=== PATIENT | male | born 1975 | race Caucasian/White ===

== ENCOUNTER 2025-01-31 14:38 | Emergency (ER) | payer MEDICAID, SELFPAY ==
[2025-01-31 14:40] VITALS: PULSE 80; RESP 18; TEMP 36.4; O2SAT 98; BMI 48.9
--- NOTE | 2025-01-31 15:08 | CT_ITS ---
PROCEDURE: ABDOMEN/PELVIS WITHOUT CONT 01/31/2025 REASON FOR EXAM: LEFT FLANK PAIN TECHNIQUE: Procedure Code: CTABDPEL Modality: CT Procedure: ABDOMEN/PELVIS WITHOUT CONT Noncontrast technique limits evaluation of the abdominal and pelvic viscera. Coronal and Sagittal reconstruction series were provided. One or more dose reduction techniques were used (e.g., Automated exposure control, adjustment of the mA and/or kV according to patient size, use of iterative reconstruction technique). RADIATION DOSE SUMMARY: DLP: 1240 mGycm COMPARISON: None FINDINGS: Limited sections of the lung bases demonstrate no focal pulmonary mass or consolidations. Calcified granuloma within the right lower lobe. The liver, spleen, pancreas, and both adrenal glands demonstrate no acute findings. Hepatomegaly to 18.4 cm. The gallbladder contains gallstones. The stomach is unremarkable. The small bowel loops are not dilated. The appendix is normal. No colonic obstruction. Colonic diverticulosis without acute diverticulitis. There is no free air or significant free fluid. 5 mm obstructive stone at the left UVJ with associated mild hydroureteronephrosis. Multiple nonobstructive stones are noted within bilateral kidneys. There is asymmetric enlargement of left kidney compared to right kidney. The urinary bladder is partially distended. The pelvic structures are intact. There is no solid pelvic mass. No significant lymphadenopathy. The aorta and IVC demonstrate no acute findings. Visualized osseous structures demonstrate no acute abnormality. CT/Abdomen/Pelvis without Cont IMPRESSION: 5 mm obstructive stone at the left UVJ with associated mild hydroureteronephros is. Reading Location: [id number]
[2025-01-31] MEDS: Ketorolac 30 MG/ML Syringe IV (15:13)
[2025-01-31] MEDS: 0.9% Normal Saline (1000mL) 1,000 ML 999 ML IV (15:13)
[2025-01-31 15:32] LABS: Hematocrit 48.6 % (40-54); Hemoglobin 16.8 g/dL (13.0-16.5); Immature Granulocytes Count 0.190 X10^3/uL (0.0-0.0); Mean Corp Hgb Conc 34.6 g/dL (32-36); Mean Corpuscular Volume 88.7 fL (80-94); Mean Platelet Vol. 10.3 fl (6.2-12.0); NRBC Flagged by Analyzer 0 % (0-5); Platelet Count 204 K/mm3 (150-450); RBC Distribution Width CV 12.4 % (11.6-14.6); RBC Distribution Width SD 40.4 fl (35.1-43.9); Red Blood Count 5.48 M/mm3 (4.6-6.2); White Blood Count 9.9 K/mm3 (4.4-11.0)
--- NOTE | 2025-01-31 15:50 | EX.ED.DYSGE1 ---
HPI History of Present Illness Chief Complaint: Flank Pain Narrative Narrative: Patient is a 49-year-old male with past medical history anxiety, ADHD, bipolar disorder who presented to the emergency department with concern for a kidney stone. He states that this feels like kidney stone as he has had multiple in the past. He states that he has passed these on his own in the past and has not had to have these removed. He states that this pain started about 2 hours prior to arrival. He states that is in the left side and is making him nauseous. He states he did not take anything for pain. [facility] Medical History ADHD Anxiety Bipolar disorder Kidney stones Home Medications ?Medication ?Instructions ?Recorded ?Last Taken ?Type amoxicillin 875 mg-potassium 1 tab PO Q12H #14 tabs 11/19/21 Unknown Rx clavulanate 125 mg tablet divalproex 500 mg tablet,delayed 500 mg PO BID 11/19/21 Unknown History release (Depakote) flaxseed oil 1,000 mg capsule 1,000 mg PO DAILY 11/19/21 Unknown History lorazepam 1 mg tablet (Ativan) 1 mg PO DAILY PRN 11/19/21 Unknown History paroxetine HCl 30 mg tablet (Paxil) 30 mg PO DAILY 11/19/21 Unknown History topiramate 200 mg tablet (Topamax) 200 mg PO DAILY 11/19/21 Unknown History ketorolac 10 mg tablet 10 mg PO Q6H PRN pain 5 days #20 01/31/25 Unknown Rx tabs ondansetron 4 mg disintegrating 4 mg PO Q6H PRN nausea and 01/31/25 Unknown Rx tablet vomiting #20 tabs oxycodone-acetaminophen 5 mg-325 1 tab PO Q6H PRN pain 3 days #12 01/31/25 Unknown Rx mg tablet (Endocet) tabs tamsulosin 0.4 mg capsule (Flomax) 0.4 mg PO DAILY #14 caps 01/31/25 Unknown Rx Allergy/AdvReac Type Severity Reaction Status Date / Time No Known Allergies Allergy Verified 01/31/25 14:39 Social History Smoking Status: Former smoker alcohol intake: never ROS ROS ED ROS Narrative Constitutional: Denies any fevers, chills, headaches Eyes: Denies double vision Cardiovascular: Denies chest pain Respiratory: No shortness of breath Abdomen: Denies abdominal pain vomiting diarrhea : Denies any painful urination, hematuria, polyuria Neurological: Denies any numbness, weakness, tingling Musculoskeletal: Complains of left flank pain as noted above Skin: Denies any rashes or lesions EXAM Physical Exam Narrative Exam Narrative: General: Patient lying in bed rest comfortably did appear to be uncomfortable secondary to his flank pain Head: Atraumatic, normocephalic Eyes: PERRL bilaterally, EOMI bilaterally, no conjunctival injection noted Neck: Soft, supple, trachea midline Cardiovascular: Regular rate and rhythm Respiratory: Clear to auscultation bilaterally Abdomen: Soft, nondistended, no tenderness to palpation Musculoskeletal: Patient has no tenderness to palpation of midline of the thoracolumbar spine, CVA tenderness noted on the left Extremities: +5/5 strength noted in the bilateral upper and lower extremities, radial pulses +2/4 in the bilateral extremities, no pedal edema exam Neurological: Patient following commands and that he was at [facility] the year is 2024 Skin: Warm, dry, intact no rashes or lesions noted Const Vital Signs: 01/31/25 14:40 Temperature 97.6 F L Temperature Source Temporal Pulse Rate 80 Respiratory Rate 18 Pulse Ox 98 Oxygen Delivery Method Room Air MDM MDM MDM Narrative Medical decision making narrative: Patient is a 49-year-old male who presented to the emergency department the chief complaint of left flank pain. On the differential diagnose includes but not limited to UTI, pyelonephritis, urolithiasis. Once workup is obtained reviewed he will be reevaluated. Patient given IV fluids Zofran and Toradol. Patient says CBC reviewed and showed no evidence of leukocytosis white blood count normal at 9.9, he was 16.8, platelet count of 204. Patient sodium normal 130, potassium normal at 4.4, creatinine was 1.50 this does appear to be around his baseline as back in November 2016 his creatinine was elevated to 1.74. Patient CT abdomen pelvis from 12/04/2016 was reviewed as well which showed at that point time right hydronephrosis and hydroureter most likely secondary to a recently passed 3 mm right ureteral calculus. The calculus is at the base of the bladder more towards the right side. Fatty infiltration of the liver. Patient's AST and ALT were 29 and 32 respectively. Patient urinalysis reviewed and showed 150 occult blood negative nitrites negative leukocyte esterase microscopic exam pending however have low suspicion for infection at this point in time. Patient CT ab pelvis without IV contrast is pending at this point in time. Patient CT abdomen pelvis without IV contrast showed a 5 mm obstructive stone at the left UVJ with associated mild hydroureteronephrosis. Patient's microscopic exam was reviewed which showed 25-50 red blood cells, 0-5 white blood cells and no bacteria noted. On reevaluation the patient at 4:20 PM he is resting comfortably in bed and does not appear to be in pain. Did discuss results with the patient he would like to go home at this point time. Patient was advised to use the Toradol as prescribed as well as the Endocet and Zofran as prescribed. He will be also prescribed Flomax. He is given urology referral as well. He is encouraged return with worsening symptoms or concerns. He is requesting pain medication before discharge. He is encouraged to return with worsening symptoms or other concerns all question concerns answered he is discharged home in stable condition. Lab Data Labs: Laboratory Results - last 24 hr 01/31/25 01/31/25 15:00 16:00 WBC 9.9 RBC 5.48 Hgb 16.8 H Hct 48.6 MCV 88.7 MCH 30.7 MCHC 34.6 RDW Std Deviation 40.4 RDW Coeff of Sunil 12.4 Plt Count 204 MPV 10.3 Immature Gran % (Auto) 1.900 H Neut % (Auto) 55.0 Lymph % (Auto) 26.0 [place] % (Auto) 13.3 H Eos % (Auto) 2.4 Baso % (Auto) 1.4 H Absolute Neuts (auto) 5.4 Absolute Lymphs (auto) 2.57 Nucleated RBC % 0 Sodium 138 Potassium 4.4 Chloride 107 Carbon Dioxide 18.2 L Anion Gap 13 BUN 24 H Creatinine 1.50 H Estim Creat Clear Calc 85.62 Est GFR (MDRD) Non-Af 57 L BUN/Creatinine Ratio 15.8 Glucose 183 H Calcium 9.3 Total Bilirubin 0.26 AST 29 ALT 32 Alkaline Phosphatase 60 Total Protein 7.4 Albumin 4.0 Globulin 3.4 Albumin/Globulin Ratio 1.2 Urine Color Yellow Urine Clarity Sl. Cloudy Urine pH 6.0 Ur Specific [place] 1.020 Urine Protein 30 H Urine Glucose (UA) Normal Urine Ketones Negative Urine Occult Blood 150 H Urine Nitrite Negative Urine Bilirubin Negative Urine Urobilinogen Normal Ur Leukocyte Esterase Negative Urine RBC 25-50 SEEN Urine WBC 0-5 SEEN Ur Squamous Epith Cells 0-5 SEEN Urine Bacteria 0 SEEN Urine Mucus 0 SEEN Radiography Diagnostic Testing: Clinical Impression(s) from Imaging Studies Abdomen/Pelvis CT 01/31/25 15:08 IMPRESSION: 5 mm obstructive stone at the left UVJ with associated mild hydroureteronephrosis. Reading Location: [facility] Discharge Plan Triage Chief Complaint: Flank Pain ED Provider: Joshua Greenfield Dx/Rx/DC Orders Clinical Impression: Urolithiasis, Left flank pain, History of bipolar disorder Prescriptions: New ketorolac 10 mg tablet 10 mg PO Q6H PRN (Reason: pain) 5 Days Qty: 20 0RF Rx Instructions: maximum total duration of 5 days from all oral, intranasal, or parenteral formulations ondansetron 4 mg tablet,disintegrating 4 mg PO Q6H PRN (Reason: nausea and vomiting) Qty: 20 0RF tamsulosin [Flomax] 0.4 mg capsule 0.4 mg PO DAILY Qty: 14 0RF oxycodone-acetaminophen [Endocet] 5-325 mg tablet 1 tab PO Q6H PRN (Reason: pain) 3 Days Qty: 12 0RF No Action paroxetine HCl [Paxil] 30 mg tablet 30 mg PO DAILY topiramate [Topamax] 200 mg tablet 200 mg PO DAILY divalproex [Depakote] 500 mg tablet,delayed release (DR/EC) 500 mg PO BID flaxseed oil 1,000 mg capsule 1,000 mg PO DAILY Rx Instructions: administer with a meal lorazepam [Ativan] 1 mg tablet 1 mg PO DAILY PRN amoxicillin-pot clavulanate 875-125 mg tablet 1 tab PO Q12H Qty: 14 0RF Primary Care Provider: Care Physician,No Primary Referrals: Calderon Farfan MD [Med Staff - Active Staff] - Care Physician,No Primary [Primary Care Provider] - Activity Restrictions/Additional Instructions: Use prescriptions as prescribed do not use any other type of NSAID with the Toradol as this is the same drug. Do not operate anything under the influence of the narcotic and ensure that you use the Zofran with this as this will upset your stomach. Return if worsening symptoms or other concerns. Follow-up with your urologist Dr. Farfan in the outpatient setting as well. Your CT scan did show that you have a kidney stone near your bladder measuring approximately 5 mm. Print Language: Setswana Disposition Disposition: Home, Self Care
[2025-01-31 16:06] LABS: AST(SGOT) 29 U/L (<=37); Alanine Aminotransfer ALT/SGPT 32 U/L (<=46); Albumin, Serum 4.0 g/dL (3.5-5.0); Alkaline Phosphatase 60 U/L (40-129); Anion Gap 13 (5-15); BUN 24 mg/dL (4-19); BUN/Creat Ratio 15.8 RATIO (10-20); Calcium,Total 9.3 mg/dL (7.6-11.0); Carbon Dioxide 18.2 mmol/L (21.0-32.0); Chloride 107 mmol/L (98-108); Estimated Creatinine Clearance 85.62 ml/min (50-250); Globulin 3.4 g/dL (2.2-4.2); Glucose 183 mg/dL (70-99); Potassium 4.4 mmol/L (3.3-5.1)
[2025-01-31 16:07] LABS: Mucous, Urine 0 SEEN /hpf (<or=2+)
[2025-01-31 16:13] LABS: Color, Urine Yellow (Yellow); Glucose, Dipstick Normal (Normal); Ketone-Dipstick Negative (Negative); Leukocyte Esterase-Dipstick Negative /ul (Negative); Nitrite-Dipstick Negative (Negative); Occult Blood-Urine 150 /ul (Negative); Protein-Dipstick 30 mg/dl (Negative); Specific Gravity, Urine 1.020 (1.002-1.030); Urine Bilirubin Dipstick Negative (Negative)
[2025-01-31 16:23] LABS: Red Blood Cells-Urine 25-50 SEEN /hpf (0-5)
[2025-01-31 16:24] LABS: Squamous Epithelial Cells - UA 0-5 SEEN /hpf (0-5)
[2025-01-31 16:51] VITALS: BP 132/80; PULSE 100; RESP 16; TEMP 36.4; O2SAT 98
--- OUTSIDE RECORDS SUMMARY | 2025-01-31 22:58 | XMS RPT_ITS | CCD ---
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 06:37 04/25/24. BP: 143/87 MAP: 103 mmHg. HR: 66 bpm. -- 07:29 04/25/24 SEBASTIÁN Kumar R.N. 06:40 04/25/24. Ambulatory to room. GENERAL / NEURO / PSYCH: Alert. Oriented X 4. Appears in pain. HEENT: Mucous membranes are pink. RESPIRATORY: Respirations not labored. Breath sounds within normal limits. ( Pt has rapid breathing with c/o extreme pain.). GI / : Abdomen soft. Bowel sounds within normal limits. ( Pt reports he has not voided since he woke up with 3 of 5 Nurse Narrative the pain.). SKIN: Skin is warm and dry. -- 07:30 04/25/24 SEBASTIÁN Kumar R.N. 06:40 04/25/24. Pain level now 12/25. -- 07:29 04/25/24 EST Evette (more content not included)... Normal [facility] ED ORDER SHEET (CPOE ONLY)on 04-25-2024 ED ORDER SHEET (CPOE ONLY) Order Sheet Order Sheet [address] [place] [address] [id number] 04/25/2024 Patient: TEJAS GARCIA Sex: Male : 1975 Age: 49y MEASUREMENTS: Wt: 145.1 kg, Ht/Luther: 68.0 in, BMI: 48.66 ALLERGIES: No known drug allergies MEDICATION/IV/DRIP/ FLUID ORDERS Order Description Priority Entered Acknowledged Completed IV NS 0.9 %1000 mL at 500 06:42 04/25/2024 06:46 06:58 mL/hr (NOW x1) Sarah Givens, 04/25/2024 04/25/2024 Evette Castano R.N. R.N. KetorOLAC (Toradol) IVP30 mg 06:42 04/25/2024 06:46 06:59 (NOW x1) Sarah Givens, 04/25/2024 04/25/2024 Evette Castano R.N. R.N. Reason for ordering with alerts: Benefits outweigh risks --06:42 04/25/2024 Sarah Givens D.O. HYDROmorphone (Dilaudid) 06:42 04/25/2024 06:46 07:03 IVP0.5 mg (NOW x1, HIGH Sarah Givens, 04/25/2024 04/25/2024 ALERT MEDICATION) Evette Castano R.N. RAriane Reason for ordering with alerts: Benefits outweigh risks --06:42 04/25/2024 Sarah Givens D.O. Flomax PO0.8 mg (NOW x1) 07:30 04/25/2024 07:31 07:38 1 of 3 Order Sheet Juan Heck M.D. 04/25/2024 04/25/2024 Ok Barkley R.N. RAriane Bentyl PO20 mg (NOW x1) 07:30 04/25/2024 07:31 07:37 Juan Heck M.D. 04/25/2024 04/25/2024 Ok Barkley R.N. R.NMelanie Reason for ordering with alerts: Clinical consideration given --07:30 04/25/2024 Juan Heck M.D. HYDROmorphone (Dilaudid) 08:10 04/25/2024 08:11 08:14 IVP0.5 mg (NOW x1, HIGH Juan Heck M.D. 04/25/2024 04/25/2024 ALERT MEDICATION) Ok Black R.N. RMelanieNMelanie Reason for ordering with alerts: Clinical consideration given --08:10 04/25/2024 Juan Heck M.D. LAB ORDERS Order Description Priority Entered Acknowledged Collected Completed Urinalysis Stat Stat 06:42 04/25/2024 06:46 04/25/2024 07:31 04/25/2024 Evette Adams Debra Schrock, D.O. R.N. R.NMelanie DIAGNOSTIC STUDY ORDERS Order Description Priority Entered Acknowledged Completed CT KUB (Kidney stone) Stat Stat 06:42 04/25/2024 06:46 07:31 Sarah Givens, 04/25/2024 04/25/2024 Evette Castano R.N. R.NMelanie Reason for Study: Flank Pain STAFF ORDERS Order Description Priority Entered Acknowledged Collected Completed IV Saline Lock 06:42 04/25/2024 06:46 04/25/2024 07:31 04/25/2024 Evette Adams, Evette Kumar, 2 of 3 Order Sheet D.OMelanie R.N. RMelanieN. [Electronically signed by Sarah Givens D.O. (04/25/2024 07:17 EST)] [Electronically signed by Juan Heck M.D. (04/25/2024 11:22 EST)] [Electronically signed by Juan Heck M.D. (04/25/2024 18:10 EST)] 3 of 3 Normal [facility] ED PHYSICIAN CLINICAL REPORT on 04-25-2024 ED PHYSICIAN CLINICAL REPORT Narrative Physician Clinical Narrative [address] [address] [id number] 04/25/2024 Patient: TEJAS GARCIA Sex: Male : 1975 Age: 49y Disposition: Discharge to Home Disposition Decision Time: 08:20 04/25/2024 Departure Time: 08:25 04/25/2024 Measurements Wt: 145.1 kg, Ht/Luther: 68.0 in, BMI: 48.66 Initial Vital Sign Measured Time BP MAP HR RR O2Sat ETCO2 Temp Pain GCS RTS 06:37 04/25/2024 143/87 103 66 Time Seen: 07:23 04/25/2024. PAST HISTORY Renal Colic Surgeries: no known surgical history Medications: Ativan 1 mg tablet: 1 mg as needed. Depakote 500 mg tablet,delayed release: 500 mg once a day . PaxiL 30 mg tablet: 30 mg once a day . Topamax 200 mg tablet: 200 mg once a day . 1 of 8 Narrative Allergies: no known drug allergies LABS, X-RAYS, AND EKG Diagnostic Study Tests: CT KUB (KIDNEY STONE PROTOCOL) Final EXAM Date: 04/25/2024 07:18:00 EST MsgRcvd: 04/25/2024 07:[address] [address] Patient: TEJAS GARCIA Phone#: : [phone] Age: 49 Gender: M Pt. Type: ER Account: [id number] Location: 052 Ordering: SARAH CHON Exam Date: 04/25/2024/7:10 Family Phys: RERE ADRIAN Charge Code: 925148 Physician: Oscoda Order #: [id number] Dose#: 26.7 mGy PROCEDURE: CT ABDOMEN AND PELVIS WITHOUT CONTRAST COMPARISON: [facility], CT, KUB W/O CON, 03/24/2023, 6:29. INDICATIONS: Flank pain. TECHNIQUE: After obtaining the patient's consent, CT images of the abdomen and pelvis were created without non-ionic intravenous contrast material. All CT scans at this facility use dose modulation, iterative reconstruction, and/or weight based dosing when appropriate to reduce radiation dose to as low as reasonably achievable. IV CONTRAST: No IV contrast used,ml TOTAL DOSE: 26.7 CTDIvol(mGy) FINDINGS: KIDNEYS: 8 millimeter calculus is present at the right ureteral pelvic junction. There are nonobstructing right renal calculi measuring 6 millimeters in 2 millimeters. Nonobstructing left renal calculus is present and measures 8 millimeters. There is mild fullness of the right pelvocaliceal structures. The ureter is normal in caliber. There is a calculus at the right ureteral vesicle junction measuring 5 2 of 8 Narrative millimeters. ADRENALS: Normal. No mass or enlargement. URINARY BLADDER: Normal. No visible focal wall thickening, lesion, or calculus. LIVER: Fatty changes of the liver are present. There is no evidence of focal abnormality. BILIARY: There is a 2.3 centimeter gallbladder calculus. There is no evidence of biliary dilatation or inflammatory change. PANCREAS: Normal. No lesion, fluid collection, ductal dilatation, or atrophy. SPLEEN: Normal. No enlargement or focal lesion. AORTA/VASCULAR: Normal. No aneurysm. RETROPERITONEUM: Normal. No mass or adenopathy. BOWEL/MESENTERY: Normal. No visible mass, obstruction, or bowel wall thickening. ABDOMINAL WALL: Normal. No mass or hernia. PELVIC NODES: Normal. No adenopathy. Continued Report - Page 2 of 2 Patient: TEJAS GARCIA Phone#: : [phone] Age: 49 Gender: M Pt. Type: ER Account: [id number] Location: 052 Ordering: SARAH GIVENS Exam Date: 04/25/2024/7:10 Family Phys: RERE ADRIAN Charge Code: [id number] Physician: Oscoda Order #: [id number] Dose#: 26.7 mGy PELVIC ORGANS: Normal. No visible mass. Pelvic organs appropriate for patient age. BONES: Normal. No bony lesion or fracture. LUNG BASES: Normal. No visible pulmonary or pleural disease. OTHER: Negative. CONCLUSION: 1. Nonobstructing bilateral renal calculi. 2. There is a calculus at the right ureteral pelvic junction and ureterovesical junction. There is fullness of the right pelvocaliceal structures. The ureter is normal in caliber. 3. Cholelithiasis. Dictated by: Irina Trivedi MD on 04/25/2024 at 7:25 Approved by: Irina Trivedi MD on 04/25/2024 at 7:29 PROGRESS AND PROCEDURES Course of Care: 08:19. Pain better. Breathing normal. No vomiting and anxiety. Appearance good. Heart rate: normal. Blood pressure: normal. (I went into evaluate the patient after he returned from CT. His pain at that point 3 of 8 Narrative was very much improved he had no nausea vomiting or other complaints. Abdomen was soft and nontender. Ordered some oral tamsulosin at that point. Awaiting CT report.). Disposition: Condition: good. Discharged in good condition. Discharge decision based on the following: patient's condition is improved; patient's exam is stable; no seriously abnormal test results; multiple repeat evaluations. CLINICAL IMPRESSION Acute generalized abdominal pain. Right renal colic with calculus. No hydronep (more content not included)... Normal [facility] ED [facility] BILLon 04-25-2024 ED [facility] [address] [place] [address] [phone] 04/25/2024 Patient: TEJAS GARCIA Sex: Male : 1975 Age: 49y Facility Professional Category Item Description Code Code Quantity Fee Total Drugs Normal Saline 136145 1 $0.00 $0.00 1000cc (259924) Nurse/E/M EMERGENCY 895119 1 $0.00 $0.00 DEPT VISIT HIGH SEVERITYFUNCJ (39346-55) Nurse/IV/IM/Infusio ns Hydration 866777 1 $0.00 $0.00 additional hour (28124) Nurse/IV/IM/Infusio ns IVP additional 061049 1 $0.00 $0.00 push (32539) Nurse/IV/IM/Infusio ns IVP initial (97584) 373616 1 $0.00 $0.00 Nurse/IV/IM/Infusio ns IVP same med 053301 1 $0.00 $0.00 (31 min apart) (81339) Grand $0.00 Total Providers 1 of 2 [facility] Lanre Adams M.D. Stan Boyd, M.D. Chief Complaint FLANK PAIN. Principal Diagnosis Acute generalized abdominal pain. Right renal colic with calculus. No hydronephrosis. ICD-10 Codes R10.84: Generalized abdominal pain N23: Unspecified renal colic N20.0: Calculus of kidney 2 of 2 Normal [facility] ED VISIT SUMMARYon ED VISIT SUMMARY Visit Overview Visit Overview [address] [address] [phone] 04/25/2024 Patient: TEJAS GARCIA Sex: Male : 1975 Age: 49y 04/25/2024 06:10 PM EST ED Arrival:06:33 04/25/2024 EST Status: Recent Travel:no Language:eng Adv Directive:No Isolation Status: Ethnicity:N Fall Risk:no risk Infectious Disease Exposure:no Measurements:5'8 / 172.7 Self-Harm Status:risk Sepsis Screen:negative cm 320.0 lb / 145.1 kg Chief Complaint:URINARY RETENTION, (c/o pain to right lower quadrant of abd radiating to right flank area. 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 Depakote 500 mg tablet,delayed release: 500 mg once a day . PaxiL 30 mg tablet: 30 mg once a day . Topamax 200 mg tablet: 200 mg once a day . 1 3 Visit Overview PAST MEDICAL HISTORY / PROBLEMS Immunizations: up-to-date Renal Colic PAST SURGICAL HISTORY No history of previous surgery No Surgeries SOCIAL HISTORY Nutritional assessment: No deficits Functional assessment: No impairments Learning needs: No barriers Smoking status: No Alcohol use: Yes Drug use: Yes ED COURSE MEDICATIONS GIVEN IN EMERGENCY DEPARTMENT 06:57 04/25/24 IV NS 0.9 % 1000 mL 500 mL/hr 06:59 04/25/24 KetorOLAC (Toradol) IVP 30 mg 07:01 04/25/24 HYDROmorphone (Dilaudid) IVP 0.5 mg 07:36 04/25/24 Bentyl PO 20 mg 07:37 04/25/24 Flomax PO 0.8 mg 08:14 04/25/24 HYDROmorphone (Dilaudid) IVP 0.5 mg IV SITE INFORMATION INTAKE OUTPUT REASSESMENT (most recent) 2 of 3 Visit Overview 06:40 04/25/24. Ambulatory to room. GENERAL / NEURO / PSYCH: Alert. Oriented X 4. Appears in pain. HEENT: Mucous membranes are pink. RESPIRATORY: Respirations not labored. Breath sounds within normal limits. ( Pt has rapid breathing with c/o extreme pain.). GI / : Abdomen soft. Bowel sounds within normal limits. ( Pt reports he has not voided since he woke up with the pain.). SKIN: Skin is warm and dry. VITAL SIGNS First Vitals Last Vitals Temp 06:37 04/25/24 Temp 08:29 04/25/24 BP 06:37 04/25/24 143/87 BP 08:29 04/25/24 122/76 HR 06:37 04/25/24 66 HR 08:29 04/25/24 74 RR 06:37 04/25/24 RR 08:29 04/25/24 O2 Sat 06:37 04/25/24 O2 Sat 08:29 04/25/24 Pain 06:37 04/25/24 Pain 08:29 04/25/24 ETCO2 06:37 04/25/24 ETCO2 08:29 04/25/24 GCS 06:37 04/25/24 GCS 08:29 04/25/24 RTS 06:37 04/25/24 RTS 08:29 04/25/24 PROCEDURES NURSING INTERVENTIONS LABS / STUDIES LABS / STUDIES ORDERED CT KUB (Kidney stone) Urinalysis CLINICAL IMPRESSION ACUTE GENERALIZED ABDOMINAL PAIN RIGHT RENAL COLIC WITH CALCULUS. NO HYDRONEPHROSIS 3 of 3 Normal [facility] ED VITALS FLOW SHEETon 04-25 ED VITALS FLOW SHEET Vitals Vital Sign Flow Sheet [place] [address] [place] [address] [phone] 04/25/2024 Patient: TEJAS GARCIA Sex: Male : 1975 Age: 49y Measurements Wt: 145.1 kg, Ht/Luther: 68.0 in, BMI: 48.66 Measured Time BP MAP HR RR O2Sat ETCO2 Temp Pain GCS RTS 08:29 04/25/2024 122/76 91 74 08:25 04/25/2024 122/76 91 70 16 96% 98.0 F 1 06:46 04/25/2024 24 06:44 04/25/2024 97.4 F 06:40 04/25/2024 97% RA 06:40 04/25/2024 8 06:37 04/25/2024 143/87 103 66 1 of 1 Normal [facility] T3Free SerPl-mCncon 06-17-19 24 Free T3 [Mass/Vol] 3.3 pg/mL Normal 2.3-4.1 [facility] Comment on above: Order Comment: Speci men Type: BLOOD SPECIMEN Ordering Facility: [facility] Address: [place] [address] Performed By: #### 3 051-0 #### [facility] CLIA [id number] [address] [place] [address] [place] Bacteria Ur Culton 3 Bacteria identified Cx Nom (U) ORGANISM ID: 1 10,000 -<50,000 CFU/ml Normal urogenital christina Normal [facility] Comment on above: Performed By: #### 6 30-4 #### [facility] CLIA [id number] [facility] [place] [id number] [place] Valproate SerPl-mCncon 10-01 Valproate [Mass/Vol] 51.2 ug/mL Normal 50.0-100.0 [facility] Comment on above: Order Comment: Speci men Type: BLOOD SPECIMEN Ordering Facility: [facility] Address: [address] [place] [address] Result Comment: Refe rence ranges and high/low indicator flags are provided as general guidelines only. The treating physician must determine appropriate target levels/dosing based on the specific clinical situation. Performed By: #### 4 086-5 #### [facility] CLIA [id number] [address] [place], [place] [id number] [place] Urgent Care Visit Reporton 0 11-19-2021 Urgent Care Visit Report [address] [place] [id number] OFFICE VISIT Date of Service: 11/19/21 MR#: [id number] Acct: [id number] Name: TEJAS GARCIA Kanchan Rep #: [id number] : 1975 Provider: ROSA Jimenez Age/Sex: 46/M Location: [facility] Status: Signed Intake Vital Signs 11/19/21 14:41 Height 1.75 m Weight: 139.706 kg BMI 45.4 BP 160/100 H Blood Pressure Location Lt brachial Position Sitting Respiration 16 Pulse 78 Pulse Source Monitor Temp 98.0 F Temp Source Temporal Pulse Oximetry (%) 98 Oxygen Delivery Method room air Intake Visit Reasons: TOOTHACHE Chief Complaint: left upper tooth ache Allergies No Known Allergies Allergy (Verified 11/19/21 14:42) Medications amoxicillin 875 mg-potassium clavulanate 125 mg tablet 1 tab PO Q12H #14 tabs 11/19/21 [Rx Confirmed 11/19/21] divalproex 500 mg tablet,delayed release (Depakote) 500 mg PO BID 11/19/21 [History Confirmed 11/19/21] flaxseed oil 1,000 mg capsule 1,000 mg PO DAILY 11/19/21 [History Confirmed 11/19/21] lorazepam 1 mg tablet (Ativan) 1 mg PO DAILY PRN 11/19/21 [History Confirmed 11/19/21] paroxetine HCl 30 mg tablet (Paxil) 30 mg PO DAILY 11/19/21 [History Confirmed 11/19/21] topiramate 200 mg tablet (Topamax) 200 mg PO DAILY 11/19/21 [History Confirmed 11/19/21] PFSH Social History (Updated 11/19/21 @ 14:44 by Ekta Franco) Smoking Status: Smoker, status unknown alcohol intake: never HPI HPI Chief Complaint: left upper tooth ache Details: TEJAS GARCIA, is a 46 M who presents to the office today for tooth ache. The patient has had multiple extractions and root canals, and has dental needs approx every 6 months. He knows that he needs extraction or root canal but cannot get in to see his dentist for at least a month. He has had progressively worsening pain especially the left upper molar.. He has no swelling. He cannot put more than light pressure on the teeth. No discharge. No gum swelling. No fever or chills. He can still eat, just not chew with that affected area. ROS Const Constitutional: No chills, fatigue or fever(s) ENT ENT: Positive for dental pain and mouth pain Endo Endocrine: No fatigue Exam Const General: cooperative, healthy appearing, comfortable and no acute distress Nutritional Appearance: overweight Orientation: alert, awake and oriented x3 HENMT Head: normocephalic and atraumatic Mouth: oral mucosae normal, lip normal, tongue normal and moist mucous membranes Teeth and gingiva: caries, poor dentition (severe erosion and caries especially last three teeth left upper side) and other (no pus or collection. no TMJ tenderness or crepitus.) Coding Level of Care Code Off vis,new,level 3 Diagnoses Infected dental caries K02.9; K04.7 Assessment and Plan Assessment and Plan (1) Infected dental caries: Status: Acute Plan: Start augmentin 875 BID x 7 days. continue nsaids and tylenol for pain. emphasized the need to get into the dentist as soon as possible for definitive care. He has multiple other areas that need addressed as well. pmhx - anxiety/depression. hes on topamax and depakote but wrote that he has no hx of seizure disorder. Medications: New amoxicillin-pot clavulanate 875-125 mg 1 TAB PO Q12H 14 tabs 0RF 11/19/21 1513 Date Cheikh Kapadia Signature: Date (if applicable) CC: Normal [facility] Valproic Acidon 05-16-2021 Valproic Acid 50.9 ug/mL Normal 50-100 [facility] Comment on above: Performed By: #### Libertad LEE #### [facility] Routine Lab [address] [place] [address] Vital Signs Date Time Vital Sign Value Performing Clinician Faci lity 01-31-2025 16:51-0400 Body temperature 97.6 [degF] Dr. Joshua Greenfield DO Work Phone: [facility] 01-31-2025 16:51-0400 Diastolic blood pressure 80 mm[Hg] Dr. Joshua Greenfield DO Work Phone: [facility] 01-31-2025 16:51-0400 Heart rate 100 /min Dr. Joshua Greenfield DO Work Phone: [facility] 01-31-2025 16:51-0400 Respiratory rate 16 /min Dr. Joshua Greenfield DO Work Phone: [facility] 01-31-2025 16:51-0400 SaO2% (BldA) [Mass fraction] 98 % Dr. Joshua Greenfield DO Work Phone: [facility] 01-31-2025 16:51-0400 Systolic blood pressure 132 mm[Hg] Dr. Joshua Greenfield DO Work Phone: [facility] 01-31-2025 14:40-0400 Body height 172.[address] Joshua Greenfield DO Work Phone: [facility] 01-31-2025 14:40-0400 Body mass index (BMI) [Ratio] 48.9 kg/m2 Dr. Joshua Greenfield DO Work Phone: [facility] 01-31-2025 14:40-0400 Body weight 145.[address] Joshua Greenfield DO Work Phone: [facility] Encounters Encounter Date Encounter Type Care Provider Facility Start: 01-31-2025 End: 01-31-2025 Emergency department patient visit Dr. Joshua Greenfield DO Work Phone: -Emergency Department Work Phone: Start: 10-16-2024 End: 10-16-2024 Emergency department patient visit JACIEL OLIVER [facility] Start: 04-25-2024 End: 04-25-2024 Emergency department patient visit SARAH GIVENS [facility] Start: 01-19-2024 ambulatory MICHELLE ARANDA [facility] Start: 01-04-2024 End: 01-04-2024 ambulatory RERE FITZPATRICK [facility] Procedures Date Procedure Procedure Detail Performing Clinician Start: 01-31-2025 Urnls dip stick/tabl et reagent auto microscopy Dr. Joshua Greenfield DO Work Phone: Start: 01-31-2025 CT of abdomen and pe lvis without contrast Dr. Joshua Greenfield DO Work Phone: Start: 01-31-[address] Joshua Greenfield DO Work Phone: Plan of Treatment Date Care Activity Detail Author Start: 01-31-2025 [facility] Payers Date Payer Category Payer Unknown [id number] [id number] 1975 Unknown [id number] 2.16.8 [id number] 1975 Unknown [id number] 2.16.8 [id number] 1975 Unknown [id number] 2.16.8 [id number] Unknown [id number] Unknown [id number] Social History Date Type Detail Facility Start: 01-31-2025 [facility] Start: 1975 Sex Assigned At Male [facility] Discharge summary 01-31-2025 Note Date & Type Note Facility 01-31-2025 Discharge summary [facility] Radiology Diagnostic study note 01-31-2025 Note Date & Type Note Facility 01-31-2025 Radiology Diagnostic study note [facility] Imaging Services [address] [place] [address] Abdomen/Pelvis without Cont MR#: [id number] Acct: [id number] Name: TEJAS GARCIA Rep #: [id number] : 1975 M 49 From: Nina Ambrosio MD PCP: Care Physician,No Primary Status: REG ER Study:Abdomen/Pelvis without Cont Date of Exa m: 01/31/25 Exam# [id number] Ordering Dr: Araceli Greenfield DO PROCEDURE: ABDOMEN/PELVIS WITHOUT CONT 01/31/2025 REASON FOR EXAM: LEFT FLANK PAIN TECHNIQUE: Procedure Code: CTABDPEL Modality: CT Procedure: ABDOMEN/PELVIS WITHOUT CONT Noncontrast technique limits evaluation of the abdominal and pelvic viscera. Coronal and Sagittal reconstruction series were provided. One or more dose reduction techniques were used (e.g., Automated exposure control, adjustment of the mA and/or kV according to patient size, use of iterative reconstruction technique). RADIATION DOSE SUMMARY: DLP: 1240 mGycm COMPARISON: None FINDINGS: Limited sections of the lung bases demonstrate no focal pulmonary mass or consolidations. Calcified granuloma within the right lower lobe. The liver, spleen, pancreas, and both adrenal glands demonstrate no acute findings. Hepatomegaly to 18.4 cm. The gallbladder contains gallstones. The stomach is unremarkable. The small bowel loops are not dilated. The appendix is normal. No colonic obstruction. Colonic diverticulosis without acute diverticulitis. There is no free air or significant free fluid. 5 mm obstructive stone at the left UVJ with associated mild hydroureteronephrosis. Multiple nonobstructive stones are noted within bilateral kidneys. There is asymmetric enlargement of left kidney compared to right kidney. The urinary bladder is partially distended. The pelvic structures are intact. There is no solid pelvic mass. No significant lymphadenopathy. The aorta and IVC demonstrate no acute findings. Visualized osseous structures demonstrate no acute abnormality. CT/Abdomen/Pelvis without Cont IMPRESSION: 5 mm obstructive stone at the left UVJ with associated mild hydroureteronephrosis. Reading Location: [id number] CC: Dr. 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 [facility] Discharge summary 01-31-2025 Note Date & Type Note Facility 01-31-2025 Discharge summary Note Date/Time January 31, 2025 4:29pm [facility] Medical Records Department [address] [place] [address] Emergency Department Summary 01/31/25 MR#: [id number] Acct: [id number] Name: TEJAS GARCIA Rep #:[id number] : 1975 49 From: Joshua Greenfield DO PCP: Care Physician,No Primary Status :REG ER Location: ED HPI History of Present Illness Chief Complaint: Flank Pain Narrative Narrative: Patient is a 49-year-old male with past medical history anxiety, ADHD, bipolar disorder who presented to the emergency department with concern for a kidney stone. He states that this feels like kidney stone as he has had multiple in the past. He states that he has passed these on his own in the past and has nothad to have these removed. He states that this pain started about 2 hours priorto arrival. He states that is in the left side and is making him nauseous. He states he did not take anything for pain. [facility] Medical History ADHD Anxiety Bipolar disorder Kidney stones Home Medications ?Medication ?Instructions ?Recorded ?Last Taken ?Type amoxicillin 875 mg-potassium 1 tab PO Q12H #14 tabs Unknown Rx clavulanate 125 mg tablet divalproex 500 mg tablet,delayed 500 mg PO BID 2 Unknown History release (Depakote) flaxseed oil 1,000 mg capsule 1,000 mg PO DAILY Unknown History lorazepam 1 mg tablet (Ativan) 1 mg PO DAILY PRN 11/19 Unknown History paroxetine HCl 30 mg tablet (Paxil) 30 mg PO DAILY 10/06 Unknown History topiramate 200 mg tablet (Topamax) 200 mg PO DAILY 10/06 Unknown History ketorolac 10 mg tablet 10 mg PO Q6H PRN pain 5 days #20 01/31/25 Unknown Rx tabs ondansetron 4 mg disintegrating 4 mg PO Q6H PRN nausea and 01/31/25 Unknown Rx tablet vomiting #20 tabs oxycodone-acetaminophen 5 mg-325 1 tab PO Q6H PRN pain 3 days #12 01/31/25 Unknown Rx mg tablet (Endocet) tabs tamsulosin 0.4 mg capsule (Flomax) 0.4 mg PO DAILY #14 caps 01/31/25 Unknown Rx Allergy/AdvReac Type Severity Reaction Status Date / Time No Known Allergies Allergy Verified 01/31/25 14:39 Social History Smoking Status: Former smoker alcohol intake: never ROS ROS ED ROS Narrative Constitutional: Denies any fevers, chills, headaches Eyes: Denies double vision Cardiovascular: Denies chest pain Respiratory: No shortness of breath Abdomen: Denies abdominal pain vomiting diarrhea : Denies any painful urination, hematuria, polyuria Neurological: Denies any numbness, weakness, tingling Musculoskeletal: Complains of left flank pain as noted above Skin: Denies any rashes or lesions EXAM Physical Exam Narrative Exam Narrative: General: Patient lying in bed rest comfortably did appear to be uncomfortable secondary to his flank pain Head: Atraumatic, normocephalic Eyes: PERRL bilaterally, EOMI bilaterally, no conjunctival injection noted Neck: Soft, supple, trachea midline Cardiovascular: Regular rate and rhythm Respiratory: Clear to auscultation bilaterally Abdomen: Soft, nondistended, no tenderness to palpation Musculoskeletal: Patient has no tenderness to palpation of midline of the thoracolumbar spine, CVA tenderness noted on the left Extremities: +5/5 strength noted in the bilateral upper and lower extremities, radial pulses +2/4 in the bilateral extremities, no pedal edema exam Neurological: Patient following commands and that he was at [facility] theyear is 2024 Skin: Warm, dry, intact no rashes or lesions noted Const Vital Signs: 01/31/25 14:40 Temperature 97.6 F L Temperature Source Temporal Pulse Rate 80 Respiratory Rate 18 Pulse Ox 98 Oxygen Delivery Method Room Air MDM MDM MDM Narrative Medical decision making narrative: Patient is a 49-year-old male who presented to the emergency department the chief complaint of left flank pain. On the differential diagnose includes but not limited to UTI, pyelonephritis, urolithiasis. Once workup is obtained reviewed he will be reevaluated. Patient given IV fluids Zofran and Toradol. Patient says CBC reviewed and showed no evidence of leukocytosis white blood count normal at 9.9, he was 16.8, platelet count of 204. Patient sodium normal 130, potassium normal at 4.4, creatinine was 1.50 this does appear to be around his baseline as back in November 2016 his creatinine was elevated to 1.74. Patient CT abdomen pelvis from 12/04/2016 was reviewed as well which showed at that pointtime right hydronephrosis and hydroureter most likely secondary to a recently passed 3 mm right ureteral calculus. The calculus is at the base of the bladdermore towards the right side. Fatty infiltration of the liver. Patient's AST andALT were 29 and 32 respectively. Patient urinalysis reviewed and showed 150 occult blood negative nitrites negative leukocyte esterase microscopic exam pending however have low suspicion for infection at this point in time. PatientCT ab pelvis without IV contrast is pending at this point in time. Patient CT abdomen pelvis without IV contrast showed a 5 mm obstructive stone atthe left UVJ with associated mild hydroureteronephrosis. Patient's microscopic exam was reviewed which showed 25-50 red blood cells, 0-5 white blood cells and no bacteria noted. On reevaluation the patient at 4:20 PM he is resting comfortably in bed and doesnot appear to be in pain. Did discuss results with the patient he would like togo home at this point time. Patient was advised to use the Toradol as prescribed as well as the Endocet and Zofran as prescribed. He will be also prescribed Flomax. He is given urology referral as well. He is encouraged return with worsening symptoms or concerns. He is requesting pain medication before discharge. He is encouraged to return with worsening symptoms or other concerns all question concerns answered he is discharged home in stable condition. Lab Data Labs: Laboratory Results - last 24 hr 01/31/25 01/31/25 15:00 16:00 WBC 9.9 RBC 5.48 Hgb 16.8 H Hct 48.6 MCV 88.7 MCH 30.7 MCHC 34.6 RDW Std Deviation 40.4 RDW Coeff of Sunil 12.4 Plt Count 204 MPV 10.3 Immature Gran % (Auto) 1.900 H Neut % (Auto) 55.0 Lymph % (Auto) 26.0 [place] % (Auto) 13.3 H Eos % (Auto) 2.4 Baso % (Auto) 1.4 H Absolute Neuts (auto) 5.4 Absolute Lymphs (auto) 2.57 Nucleated RBC % 0 Sodium 138 Potassium 4.4 Chloride 107 Carbon Dioxide 18.2 L Anion Gap 13 BUN 24 H Creatinine 1.50 H Estim Creat Clear Calc 85.62 Est GFR (MDRD) Non-Af 57 L BUN/Creatinine Ratio 15.8 Glucose 183 H Calcium 9.3 Total Bilirubin 0.26 AST 29 ALT 32 Alkaline Phosphatase 60 Total Protein 7.4 Albumin 4.0 Globulin 3.4 Albumin/Globulin Ratio 1.2 Urine Color Yellow Urine Clarity Sl. Cloudy Urine pH 6.0 Ur Specific [place] 1.020 Urine Protein 30 H Urine Glucose (UA) Normal Urine Ketones Negative Urine Occult Blood 150 H Urine Nitrite Negative Urine Bilirubin Negative Urine Urobilinogen Normal Ur Leukocyte Esterase Negative Urine RBC 25-50 SEEN Urine WBC 0-5 SEEN Ur Squamous Epith Cells 0-5 SEEN Urine Bacteria 0 SEEN Urine Mucus 0 SEEN Radiography Diagnostic Testing: Clinical Impression(s) from Imaging Studies Abdomen/Pelvis CT 01/31/25 15:08 IMPRESSION: 5 mm obstructive stone at the left UVJ with associated mild hydroureteronephrosis. Reading Location: [id number] Discharge Plan Triage Chief Complaint: Flank Pain ED Provider: Joshua Greenfield Dx/Rx/DC Orders Clinical Impression: Urolithiasis, Left flank pain, History of bipolar disorder Prescriptions: New ketorolac 10 mg tablet 10 mg PO Q6H PRN (Reason: pain) 5 Days Qty: 20 0RF Rx Instructions: maximum total duration of 5 days from all oral, intranasal, or parenteral formulations ondansetron 4 mg tablet,disintegrating 4 mg PO Q6H PRN (Reason: nausea and vomiting) Qty: 20 0RF tamsulosin [Flomax] 0.4 mg capsule 0.4 mg PO DAILY Qty: 14 0RF oxycodone-acetaminophen [Endocet] 5-325 mg tablet 1 tab PO Q6H PRN (Reason: pain) 3 Days Qty: 12 0RF No Action paroxetine HCl [Paxil] 30 mg tablet 30 mg PO DAILY topiramate [Topamax] 200 mg tablet 200 mg PO DAILY divalproex [Depakote] 500 mg tablet,delayed release (DR/EC) 500 mg PO BID flaxseed oil 1,000 mg capsule 1,000 mg PO DAILY Rx Instructions: administer with a meal lorazepam [Ativan] 1 mg tablet 1 mg PO DAILY PRN amoxicillin-pot clavulanate 875-125 mg tablet 1 tab PO Q12H Qty: 14 0RF Primary Care Provider: Care Physician,No Primary Referrals: Calderon Farfan MD [Med Staff - Active Staff] - Care Physician,No Primary [Primary Care Provider] - Activity Restrictions/Additional Instructions: Use prescriptions as prescribed do not use any other type of NSAID with the Toradol as this is the same drug. Do not operate anything under the influence of the narcotic and ensure that you use the Zofran with this as this will upset your stomach. Return if worsening symptoms or other concerns. Follow-up with your urologist Dr. Farfan in the outpatient setting as well. Your CT scan did show that you have a kidney stone near your bladder measuring approximately 5 mm. Print Language: Albanian Disposition Disposition: Home, Self Care What to do if you have Problems For any increased pain, shortness of breath, bleeding, nausea or vomiting, chestpain, or any unexpected problems, contact your Primary Care Provider. Call [facility] ([phone]) or report to the closest Emergency Room. Call 911 if necessary. 01/31/25 1629 <Electronically signed by Joshua Greenfield DO> Mendyigner Signature (if applicable): CC: No Primary Care Physician ~ Signed [facility] Work Phone: Clinical Note 04-25-2024 Note Date & Type Note Facility 04-25-2024 Note Discharge Instructio ns Discharge Summary [address] [address] [id number] 04/25/2024 Patient: TEJAS GARCIA Sex: Male : 1975 Age: 49y Thank you for visiting [facility]. You have been evaluated today by Sarah Givens D.O. for the following condition(s): Patient Signature Facility Finance Mgr Date/Time General Instructions with ExitWriter [address] [address] [id number] 04/25/2024 Patient: TEJAS GARCIA Sex: Male : 1975 Age: 49y Thank you for visiting [facility]. You have been evaluated today by Sarah Givens D.O. for the following condition(s): 1 of 9 Discharge Instructions Discharge Summary [address] [address] [id number] 04/25/2024 Patient: TEJAS GARCIA Sex: Male : 1975 Age: 49y Thank you for visiting [facility]. You have been evaluated today by Juan Heck M.D. for the following condition(s): DISCHARGE INSTRUCTIONS Prescription Medications: Percocet 5 mg-325 mg tablet: Take 1 tablet by mouth every six hours as needed for pain for 3 days, dispense 12 tablet. Refills 0. Pharmacy: [facility] [id number] [place] [address]. Percocet 5 mg-325 mg tablet: Take 1 tablet by mouth every four to six hours as needed for pain for 3 days, dispense 18 tablet. Refills 0. Pharmacy: [facility] - [address] [place] [address] [phone]. Patient Signature Facility Finance Mgr Date/Time 2 of 9 Discharge Instructions General Instructions with ExitWriter [address] [address] [id number] 04/25/2024 Patient: TEJAS GARCIA Sex: Male : 1975 Age: 49y Thank you for visiting [facility]. You have been evaluated today by Juan Heck M.D. for the following condition(s): DISCHARGE INSTRUCTIONS Prescription Medications: Percocet 5 mg-325 mg tablet: Take 1 tablet by mouth every six hours as needed for pain for 3 days, dispense 12 tablet. Refills 0. Pharmacy: [facility] [id number] [place] [address]. Percocet 5 mg-325 mg tablet: Take 1 tablet by mouth every four to six hours as needed for pain for 3 days, dispense 18 tablet. Refills 0. Pharmacy: [facility] - [address] [place] [address] [phone]. Discharge Summary [address] [address] [id number] 04/25/2024 [id number] Sex: Male : 1975 Age: 49y Thank you for visiting [facility]. You have been evaluated today by Juan Heck M.D. for the following condition(s): 3 of 9 Discharge Instructions Principal Diagnosis Acute generalized abdominal pain. Right renal colic with calculus. No hydronephrosis. INSTRUCTIONS Prescription Medications: Medications prescribed: Tamsulosin 0.4 mg p.o. daily; ketorolac 10 mg every 8 hours. Percocet 5 mg-325 mg tablet: Take 1 tablet by mouth every four to six hours as needed for pain for 3 days, dispense 18 tablet. Refills 0. Pharmacy: [facility] - [address] [place] [address] [phone]. Follow-up: Follow up with a urologist in three days if not better. Dr Griffith, [facility] [phone]. Follow-up with: Rere Adrian DNP, TALENT ACQUISITION PARTNER, ECHO TECH-C, [facility], , [address] [place] [phone]. Follow up in two days if not better. You have been given the following additional information: Kidney Stone with Pain Patient Signature Facility Finance Mgr Date/Time General Instructions with ExitWriter [address] [place] [address] [id number] 04/25/2024 4 of 9 Discharge Instructions Patient: TEJAS GARCIA Sex: Male : 1975 Age: 49y Thank you for visiting [facility]. You have been evaluated today by Juan Heck M.D. for the following condition(s): Principal Diagnosis Acute generalized abdominal pain. Right renal colic with calculus. No hydronephrosis. INSTRUCTIONS Prescription Medications: Medications prescribed: Tamsulosin 0.4 mg p.o. daily; ketorolac 10 mg every 8 hours. Percocet 5 mg-325 mg tablet: Take 1 tablet by mouth every four to six hours as needed for pain for 3 days, dispense 18 tablet. Refills 0. Pharmacy: [facility] - [address] [place] [address] [phone]. Follow-up: Follow up with a urologist in three d (more content not included)... [facility] Evaluation note Note Date & Type Note Facility Evaluation note No assessment information availa ble [facility] Work Phone: Hospital Discharge instructions Note Date & Type Note Facility Hospital Discharge instructions Additional Instructions Use prescriptions as prescribed do not use any other type of NSAID with the Toradol as this is the same drug. Do not operate anything under the influence of the narcotic and ensure that you use the Zofran with this as this will upset your stomach. Return if worsening symptoms or other concerns. Follow-up with your urologist Dr. Farfan in the outpatient setting as well. Your CT scan did show that you have a kidney stone near your bladder measuring approximately 5 mm. [facility] Work Phone: Reason for referral (narrative) Note Date & Type Note Facility Reason for referral (narrative) No reason for referral information available [facility] Work Phone: Summary Purpose Family History No Family History Records FoundNo Family History Records FoundNo Family History Records FoundNo Family History Records Found Advance Directives Advance Directive Response Recorded Date/ Time Do you have a Healthcare Power of Control Clerk Subassembly? No January 31, 2025 2:58pm Advance Directives No April 22, 2016 12:17am Chief Complaint and Reason for Visit Chief Complaint Admit Date flank pain January 31, 2025 2:38pm Additional Source Comments (unrecognized sect ion and content) No Status Records FoundNo Status Records FoundNo Status Records FoundNo Status Records Found INFORMATION SOURCE (unrecogn ized section and content) DATE CREATED AUTHOR 05/16/2021 [facility] DATE CREATED AUTHOR AUTHOR'S ORGANIZ ATION 11/19/2021 [facility] DATE CREATED AUTHOR AUTHOR'S ORGANIZ ATION 06/20/2023 [facility] DATE CREATED AUTHOR AUTHOR'S ORGANIZ ATION 10/17/2024 [facility] Care Teams (unrecognized sec tion and content) Team Status: Active Member Role/Relationship Status Dates No Primary Care Physician Primary Care Provider Active Team Status: Inactive Member Role/Relationship Status Dates Dr. Joshua Greenfield , Emergency Provider Active Start: January 31, 2025 End: January 31, 2025 No Primary Care Physician Primary Care Provider Active Start: January 31, 2025 End: January 31, 2025 Goals (unrecognized section and content) Goals may be documented in a n alternate section FOR RECORDS PERTAINING TO PATIENTS WHO ARE OR HAVE BEEN ENROLLED IN A CHEMICAL DEPENDENCY/SUBSTANCEABUSE PROGRAM, SOME INFORMATION MAY BE OMITTED. This clinical summary was aggregated from multiple sources. Caution should be exercised in using it in the provision of clinical care. This summary normalizes information from multiple sources, and as a consequence, information in this document may materially change the coding, format and clinical context of patient data. In addition, data may be omitted in some cases. CLINICAL DECISIONS SHOULD BE BASED ON THE PRIMARY CLINICAL RECORDS. [facility]. provides no warranty or guarantee of the accuracy or completeness of information in this document.
== END 2025-01-31 16:52 | disposition home or self-care (01) ==
PROVIDERS: Emergency Provider Emergency Medicine; Visit Provider Emergency Medicine
DX: N13.2 Hydronephrosis with renal and ureteral calculous obstruction (principal); F31.9 Bipolar disorder, unspecified; Z87.891 Personal history of nicotine dependence
CPT/HCPCS: 74176; 80053; 81001; 85025; 96361; 96374; 96375; 99283; A4216; J2405